=== PATIENT | female | born 1945 | race Caucasian/White ===

== ENCOUNTER 2018-02-04 14:21 | Outpatient (CLI) | payer OTHER ==
[2013-07-27 00:12] VITALS: BP 132/68
--- NOTE | 2018-02-04 15:05 | Diagnostic Imaging Report ---
MARVA HACKETT [facility] [address] [address] [id number] Report Submission Date: Feb 04, 2018 3:00:21 PM CDT Patient Study Name: REYNA IRVING Date: Feb 04, 2018 2:26:33 PM CDT Modality Type: DX Gender: F Description: LOWER EXTREMITY : 47 Institution: [facility] Physician: MARVA HACKETT Examination: Plain film knees History: Knee discomfort Findings: 3 views of the right and left knees prosthetic devices in place. No fracture. No evidence for loosening No dislocation. No joint effusion. No soft tissue irregularity. Impression: Bilateral knee prostheses. No evidence for fracture or loosening. Electronically signed on Feb 04, 2018 3:00:21 PM CDT by: Ankur CHINO
== END 2018-02-04 14:22 ==
LOC: RAD 14:21
PROVIDERS: ATTEND Pediatrics
DX: M25.562 Pain in left knee (principal); M25.561 Pain in right knee